=== PATIENT | female | born 2000 | race Caucasian/White ===

== ENCOUNTER 2020-12-14 00:20 | Emergency (ER) | payer OTHER ==
[~2020-12-14] VITALS: Ht 157.5 cm; Wt 67.1 kg
[2020-12-14 00:32] VITALS: BP 123/86
--- NOTE | 2020-12-14 00:32 | NUR ---
TO BED AMBULATORY
--- NOTE | 2020-12-14 00:35 | NUR ---
20 Y/O FEMALE PATIENT PRESENTS TO ED WITH PINKY FINGER PAIN. PT STATES " I ACCIDENTALLY BANGED MY FINGERS IN THE WALL AND THIS IS HAT HAPPENED WITH MY NAILS." DENIES N/V/D; SKIN IS PINK/WARM/DRY; AAOX4 WITH EVEN AND STEADY GAIT; LUNGS CLEAR BL; HR EVEN AND REGULAR; PT DENIES ANY FEVER, CP, SOB, OR COUGH AT THIS TIME; PATIENT STATES PAIN OF 7/10 AT THIS TIME; VSS; PATIENT POSITIONED FOR COMFORT; HOB ELEVATED; BEDRAILS UP X2; BED DOWN. ER MD MADE AWARE OF PT STATUS. NKA PMH: DENIES
--- NOTE | 2020-12-14 01:11 | NUR ---
Dr. Short examining patient.
[2020-12-14] MEDS ORDERED: LIDOCAINE MPF 2% 100 MG/5 ML VIAL INJ ONE (01:15)
[2020-12-14] MEDS ORDERED: LIDOCAINE MPF 1% 5 ML ONE (01:18)
[2020-12-14] MEDS ORDERED: BACITRACIN OINT 500 UNITS/GM PKT TP ONE (02:25)
[2020-12-14] MEDS ORDERED: BACI1PAC6 TP (02:26)
[2020-12-14] MEDS ORDERED: NAPR-54 PO (02:26)
[2020-12-14 02:43] VITALS: BP 123/86
--- NOTE | 2020-12-14 02:44 | NUR ---
Patient discharged with v/s stable. Written and verbal after care instructions given and explained. Patient alert, oriented and verbalized understanding of instructions. Ambulatory with steady gait. All questions addressed prior to discharge. ID band removed. Patient advised to follow up with PMD. Rx of BAITRACIN AND NAPROSYN given. Patient educated on indication of medication including possible reaction and side effects. Opportunity to ask questions provided and answered.
== END 2020-12-14 02:33 | disposition home or self-care (01) ==
LOC: MED 00:20
DX: S61.307A Unspecified open wound of left little finger with damage to nail, initial encounter (principal); Z79.899 Other long term (current) drug therapy; W22.01XA Walked into wall, initial encounter; Y93.89 Activity, other specified; Y92.89 Other specified places as the place of occurrence of the external cause; Y99.8 Other external cause status
CPT/HCPCS: 64450; 99284; J2001; 99283